=== PATIENT | male | born 1960 | race Caucasian/White ===

== ENCOUNTER 2017-03-20 05:26 | Inpatient (IN) | payer BC ==
[2017-03-20] VITALS (8 sets, daily range): BP systolic 109–129; BP diastolic 72–91
[~2017-03-20] VITALS: Ht 185.4 cm; Wt 95.7 kg
--- NOTE | ~2017-03-20 | EKG ---
[address] [address] ELECTROCARDIOGRAM REPORT Name: LA RIVERA Room #: 150-1 ADM IN M.R.#: [id number] Admission: 03/20/17 Attend Phys: Wes Mcallister MD Discharge: Date of : 56 Report #: [id number] THIS REPORT FOR: //name// [facility] Test Date: 2017-03-20 Test Time: 06:42:12 Pat Name: LA RIVERA Department: Room: 150 1 Gender: M [employer]: VISHNU : 1960 Requested By: Samra Becerra Order Number: [id number] MD: Timoteo Gonsalez Measurements Intervals Wirt Rate: 73 P: 65 GA: 170 QRS: 1 QRSD: 90 T: 22 QT: 388 QTc: 428 Interpretive Statements Sinus rhythm Abnormal R-wave progression, early transition Left ventricular hypertrophy Baseline wander in lead(s) II,III,aVR,aVL,aVF No previous ECG available for comparison Electronically Signed On 03-20-2017 9:26:56 CDT by Timoteo Gonsalez [email or web address] <ELECTRONICALLY SIGNED> By: Timoteo Gonsalez MD, LOCATED WITHIN [facility] 03/20/17 0926 [id number] Timoteo Gonsalez MD, LOCATED [facility] /EPI
--- NOTE | ~2017-03-20 | O ---
[facility] [place] [address] OPERATIVE REPORT Name: MIGUELJEFFBYRON Luanne Room #: 311-P [facility] IN M.R.#: [id number] Admission: 03/20/17 Attend Phys: Wes Mcallister MD Discharge: 03/21/17 Date of : 56 Report #: [id number] THIS REPORT FOR: //name// CC: ILANA MILLS Wes Mcallister DATE OF SERVICE: 03/20/2017 PREOPERATIVE DIAGNOSIS: Left knee osteoarthritis. POSTOPERATIVE DIAGNOSIS: Left knee osteoarthritis. PROCEDURE: Left total knee arthroplasty. SURGEON: Wes Mcallister MD. [place]STONE LAYER: Roseanna Sotomayor PA-C. ANESTHESIA: LMA with an adductor canal block. IMPLANTS: Seo and Nephew size 6 Legion Oxinium posterior stabilized femur, a size 6 tibia, size 9 polyethylene, and a size 35 patella. TOURNIQUET TIME: 74 minutes. COMPLICATIONS: None. SPECIMENS: None. CONDITION UPON LEAVING THE OPERATING ROOM: Stable. INDICATIONS FOR PROCEDURE: The patient is a 56-year-old gentleman with severe left knee osteoarthritis. He had failed conservative treatment for this and after discussion with him, he elected for left total knee arthroplasty. DESCRIPTION OF PROCEDURE: Risks, benefits, alternatives, complications were discussed in detail with the patient including but not limited to risk of anesthesia, risk of damage to nerves, arteries, blood vessels, risk for infection, bleeding, risk for continued knee pain and need for reoperation. Informed consent was obtained from the patient. Left knee was appropriately marked in the preoperative holding area. Adductor canal block was placed by anesthesia, 2 grams IV Ancef was given for preoperative antibiotics. He was brought to the operating room and placed in the supine position on operating room table. LMA anesthesia was induced without complication. Tourniquet was placed on the left thigh. Left lower extremity was prepped and draped in normal sterile fashion. Timeout was performed properly identifying the patient and [address] [address] OPERATIVE REPORT Name: MIGUELLA Room #: 311-P [facility] IN [facility].#: [id number] Admission: 03/20/17 Attend Phys: Wes Mcallister MD Discharge: 03/21/17 Date of : 56 Report #: [id number] procedure as well as the instrumentation, all in the operating room were in agreement. Left lower extremity was exsanguinated, tourniquet was inflated. Tourniquet time was 74 minutes. Standard midline approach to knee was made with 10 blade through the skin. Dissection was taken down sharply to the fascia and deep flaps were developed medially and laterally. Fresh 10 blade was used to make a medial parapatellar arthrotomy and the knee was inspected and found to have extensive tricompartmental osteoarthritis. Anterior horns of the meniscus were removed sharply. The patella was everted and knee was flexed. ACL and PCL were removed sharply. Drill was used to gain access to the canal of the femur and intramedullary alignment was used. Distal femoral cutting block was pinned in place and distal femoral cut was made. Femur was sized, found to be a size 6. The size 6, 4-in-1 cutting block was placed. Anterior, posterior and chamfer cuts were made. The knee was then hyperflexed. Attention was turned to the tibia. The remainder of the menisci removed with Bovie cautery. Drill was used to gain access to the canal of the tibia and tibial resection was based off the lateral plateau. Posterior osteophytes were removed from the femur. The medial osteophytes off the tibia were removed with a rongeur. Flexion and extension gaps were then checked and found to be tight in extension with good balance in flexion. A 2 mm of additional distal femur were taken and the chamfer cuts were remade. After this, the knee was well balanced in flexion and extension. A trial size 6 tibia was placed, size 6 femoral trial was placed and the box cut was made. A 9 mm was taken off the posterior surface of the patella and a size 35 patellar button was placed. Knee was taken through range of motion, found to be stable, found to have good patellar tracking and good balance medially and laterally. Trial components were removed. Bony ends were thoroughly irrigated with normal saline. The final size 6 tibia, a 6 Legion Oxinium posterior stabilized femur and a size 35 patella were then cemented in place using standard cementation techniques. While the cement cured, a periarticular injection consisting of ropivacaine, morphine, epinephrine and Toradol was placed around the knee joint. Tourniquet was deflated. Hemostasis was obtained with Bovie cautery. Final size 9 polyethylene was placed. The fascia was closed with 0 Vicryl. Skin was closed with 2-0 Vicryl, 3-0 Monocryl, Dermabond as well as Acticoat and PHIL dressings were applied. The patient tolerated this procedure well and went to the recovery room under the care of anesthesia postoperatively. <ELECTRONICALLY SIGNED> By: Wes Mcallister MD 03/24/17 0745 [id number] Wes Mcallister MD /nt
[~2017-03-20 05:26] MED LIST: ALEVE220 MG PO; ASPIRIN325 PO; CELEXA10 M1 PO; LISINOPRIL10 MG PO; LOVAZA PO; XANAX 0.5 MG0.5 M1 PO
[2017-03-21] VITALS: BP 124/73
[2017-03-21 04:00] VITALS: BP 117/71
[2017-03-21 05:37] LABS: HEMATOCRIT 33.2 % (42.0-52.0); HEMOGLOBIN 11.9 gm/dL (14.0-18.0); MCH 32.4 pg (26.0-34.0); RBC 3.69 mil/uL (4.50-6.00); RDW 13.7 % (10.5-14.5); WBC 10.2 thou/uL (4.0-11.0)
[2017-03-21 07:56] VITALS: BP 1438/83
[2017-03-21] MEDS ORDERED: ONDANSETRON HCL4 M2 PO (08:59)
[2017-03-21] MEDS ORDERED: PERCOCET PO (09:00)
[2017-03-21] MEDS ORDERED: KEFLEX500 MG (09:00)
[2017-03-21] MEDS ORDERED: NEURONTIN 300300 M1 PO (09:01)
[2017-03-21] MEDS ORDERED: MS CONTIN15 MG PO (09:01)
[2017-03-21 09:21] VITALS: BP 143/83
== END 2017-03-21 12:07 | disposition home or self-care (01) | DRG 470 ==
LOC: TBA 05:26 → 5S 11:01 → PRE 14:11 → 3N 18:44
PROVIDERS: Orthopaedic Surgery
PROC: 0SRD0J9 Replacement of Left Knee Joint with Synthetic Substitute, Cemented, Open Approach (ICD-10-PCS; principal; 2017-03-20)
DX: M17.0 Bilateral primary osteoarthritis of knee (principal); M23.204 Derangement of unspecified medial meniscus due to old tear or injury, left knee; E78.5 Hyperlipidemia, unspecified; I10 Essential (primary) hypertension; Z79.899 Other long term (current) drug therapy; Z90.49 Acquired absence of other specified parts of digestive tract; Z82.49 Family history of ischemic heart disease and other diseases of the circulatory system
CPT/HCPCS: 10795; 50010; 50101; 50415; 50612; 50954; 51130; 51225; 51320; 51771; 52001; 52282; 53000; 53078; 53368; 54118; 56527; 56528; 57095; 62110; 62900; 65060; 70005